=== PATIENT | female | born 1970 | race Caucasian/White ===

== ENCOUNTER 2016-08-28 19:23 | Emergency (ER) | payer OTHER ==
[~2016-08-28] VITALS: Ht 167.6 cm; Wt 64.9 kg
[2016-08-28] MEDS ORDERED: IBUP600T26 PO (19:49)
[2016-08-28] MEDS ORDERED: ZANA6CAP PO (19:49)
[2016-08-28] MEDS ORDERED: ZYRT10TA2 PO (19:49)
[2016-08-28] MEDS ORDERED: SYNT112T2 PO (19:49)
[2016-08-28] MEDS ORDERED: OMEP10CASR PO (19:49)
[2016-08-28 20:53] LABS: BASO # 0.1 K/mm3 (0.0-0.2); EOS # 0.3 K/mm3 (0.0-0.50); LARGE UNSTAINED CELL # 0.2 K/mm3 (0.0-0.4); LARGE UNSTAINED CELL % 1.8 % (0.0-4.0); LYMPH # 4.4 K/mm3 (1.5-4.5); LYMPH % 48.6 % (24.0-44.0); MEAN CORPUSCULAR HEMOGLOBIN 31.1 pg (27.0-33.0); MEAN CORPUSCULAR HGB CONC 33.3 g/dl (32.0-36.5); MEAN CORPUSCULAR VOLUME 93.2 fl (80.0-96.0); MONO # 0.5 K/mm3 (0.0-0.8); MONO % 5.1 % (0.0-5.0); NEUTROPHILS # 3.5 K/mm3 (1.8-7.7); NEUTROPHILS % 40.4 % (36.0-66.0); PLATELET COUNT, AUTOMATED 218 k/mm3 (150-450); RED CELL DISTRIBUTION WIDTH 13.6 % (11.5-14.5); WHITE BLOOD COUNT 8.8 K/mm3 (4.0-10.0)
[2016-08-28 21:06] LABS: INR 0.87
[2016-08-28 21:16] LABS: ANION GAP 4 MEQ/L (8-16); BLOOD UREA NITROGEN 10 MG/DL (7-18); CALCIUM LEVEL 8.6 MG/DL (8.5-10.1); CARBON DIOXIDE LEVEL 29 MEQ/L (21-32); CHLORIDE LEVEL 108 MEQ/L (98-107); CREATININE FOR GFR 0.59 MG/DL (0.55-1.02); FREE T4 1.22 NG/DL (0.76-1.46); GLOMERULAR FILTRATION RATE > 60.0 (>58); GLUCOSE, FASTING 91 MG/DL (70-105); SODIUM LEVEL 141 MEQ/L (136-145)
--- NOTE | 2016-08-28 21:30 | REPUSA ---
CLINICAL HISTORY: CVA TECHNIQUE: Head CT without contrast COMPARISON: No study for comparison is available at the time of interpretation. Brain: No intracranial hemorrhage, hydrocephalus, acute parenchymal edema or evident mass. Calvarium: Unremarkable. Sinuses (partially visualized): Clear. IMPRESSION: No acute intracranial findings.
[2016-08-28 22:37] VITALS: BP 116/65
--- NOTE | 2016-08-29 09:22 | ECGEPIP ---
Stationary ECG Study [facility] - ED Test Date: 2016-08-28 Pat Name: MARIAJOSE BARON Department: Room: - Gender: F Fur Dyer: OrtizB: 1970 Requested By: MESERET Mehta Order Number: [id number] Reading MD: Jessica Guadarrama Measurements Intervals Graham Rate: 65 P: 53 OK: 136 QRS: 26 QRSD: 91 T: 21 QT: 393 QTc: 411 Interpretive Statements SINUS RHYTHM NO PRIOR FOR COMPARISON Electronically Signed On 08-29-2016 9:22:30 EDT by Jessica Guadarrama
== END 2016-08-28 22:38 | disposition left against medical advice (07) ==
LOC: M ED 21:28
DX: R20.0 Anesthesia of skin (principal); M51.9 Unspecified thoracic, thoracolumbar and lumbosacral intervertebral disc disorder; M19.90 Unspecified osteoarthritis, unspecified site; M67.479 Ganglion, unspecified ankle and foot; Z87.891 Personal history of nicotine dependence; Z88.8 Allergy status to other drugs, medicaments and biological substances; Z88.5 Allergy status to narcotic agent; Z79.899 Other long term (current) drug therapy